=== PATIENT | male | born 1970 | race Caucasian/White ===

== ENCOUNTER 2017-02-09 08:32 | Day surgery (SDC) | payer OTHER ==
[~2017-02-09] VITALS: Ht 182.9 cm; Wt 103.5 kg
[2017-02-09 09:20] VITALS: BP 140/72
[2017-02-09] MEDS ORDERED: GLUC1TAB22 PO (09:24)
[2017-02-09] MEDS ORDERED: UBID100C11 PO (09:24)
[2017-02-09] MEDS ORDERED: ASPI-496 PO (09:24)
[2017-02-09] MEDS ORDERED: ALLO300T PO (09:24)
[2017-02-09] MEDS ORDERED: VALS320T2 PO (09:24)
[2017-02-09] MEDS ORDERED: NIAC500C3 PO (09:24)
[2017-02-09] MEDS ORDERED: SODIUM CHLORIDE 0.9% 1,000 ML IV ONE (09:25)
[2017-02-09] MEDS ORDERED: LIDOCAINE 1%, 20ML ONE (10:04)
[2017-02-09] MEDS ORDERED: MIDAZOLAM 1 MG/ML, 5ML ONE (10:18)
[2017-02-09] MEDS ORDERED: NALOXONE 1 MG/ML, 2ML ONE (10:19)
[2017-02-09] MEDS ORDERED: FLUMAZENIL 0.1 MG/1 ML, 5ML ONE (10:19)
[2017-02-09] MEDS ORDERED: FENTANYL PF 100 MCG/2ML ONE (10:19)
== END 2017-02-09 12:10 ==
LOC: OUT 08:32
PROVIDERS: ATTEND Nurse Practitioner Family
DX: K75.89 Other specified inflammatory liver diseases (principal); I10 Essential (primary) hypertension; E78.5 Hyperlipidemia, unspecified
CPT/HCPCS: 36415; 47000; 76700; 76942; 85610; 88307; 88313; 99156; 99157; J2250; J3010; J3490; J7030; J2310